=== PATIENT | male | born 1995 | race African-American/Black ===

== ENCOUNTER 2020-02-09 13:24 | Emergency (ER) | payer SELFPAY ==
[2020-02-09] MEDS ORDERED: AZITHROMYCIN 250 MG TABLET PO ONE (13:42)
[2020-02-09] MEDS ORDERED: CEFTRIAXONE INJ 250 MG VIAL IM ONE (13:42)
[2020-02-09] MEDS ORDERED: LIDOCAINE 1% INJ-PF (10 MG/ML) 30 ML SDV INJ ONE (13:42)
--- NOTE | 2020-02-09 13:44 | ER Document Report ---
HPI - HPI Time Seen by Provider: 02/09/20 13:39 Context: Patient is a 24-year-old male presents emergency department with a chief complaint of penile discharge. Patient reports yesterday after having unprotected sexual intercourse he noticed a cloudy yellow discharge coming from penis. He reports that he continues to have the same symptoms today as well as burning with urination. Patient reports he has had 3 sexual partners within the past month and has used protection sometimes. Patient would like to be checked for STI. Patient denies testicular pain or swelling. Patient denies lesions or penile swelling. Past Medical History - General Information source: Patient - Social History Smoking Status: Unknown if Ever Smoked Lives with: Family Family History: None - Past Medical History Cardiac Medical History: Reports: None Pulmonary Medical History: Reports: None EENT Medical History: Reports: None Neurological Medical History: Reports: None Endocrine Medical History: Reports: None Renal/ Medical History: Reports: None Malignancy Medical History: Reports None GI Medical History: Reports: None Musculoskeletal Medical History: Reports None Skin Medical History: Reports None Psychiatric Medical History: Reports: None Traumatic Medical History: Reports: None Infectious Medical History: Reports: None Surgical Hx: Negative Vertical Provider Document - CONSTITUTIONAL Agree With Documented VS: Yes Exam Limitations: No Limitations General Appearance: No Apparent Distress - HEENT HEENT: Atraumatic, Normal ENT Exam, Normocephalic, PERRLA - RESPIRATORY Respiratory: Breath Sounds Normal, No Respiratory Distress - CARDIOVASCULAR Cardiovascular: Regular Rate, Regular Rhythm - GI/ABDOMEN Gastrointestinal: Abdomen Soft, Abdomen Non-Tender, Normal Bowel Sounds - MUSCULOSKELETAL/EXTREMETIES Musculoskeletal/Extremeties: FROM - NEURO Level of Consciousness: Awake, Alert, Appropriate - DERM Integumentary: Warm, Dry, No Rash Course - Re-evaluation Re-evalutation: 02/09/20 Urine did show trace bacteria with 9 WBCs. Patient was prophylactically treated for gonorrhea and chlamydia. 20:00 I did call and speak with the patient in regards to his negative gonorrhea and Chlamydia results. Due to the patient's risky sexual behavior I have informed him to avoid sexual intercourse for the next 14 days. Urine culture was sent. Patient will be called if this requires antibiotics. Patient encouraged to get rechecked if continues to have symptoms. Patient also advised to return if symptoms worsen or change such as testicular pain or swelling. - Laboratory Laboratory results interpreted by me: 02/09/20 20:10 Laboratory 02/09/20 02/09/20 14:15 14:15 Urine Color YELLOW Urine Appearance CLEAR Urine pH 6.0 Ur Specific [place] 1.017 Urine Protein NEGATIVE Urine Glucose (UA) NEGATIVE Urine Ketones NEGATIVE Urine Blood NEGATIVE Urine Nitrite NEGATIVE Urine Bilirubin NEGATIVE Urine Urobilinogen NEGATIVE Ur Leukocyte Esterase TRACE H Urine WBC (Auto) 9 Urine RBC (Auto) 1 Urine Mucus (Auto) RARE Urine Ascorbic Acid NEGATIVE Chlamydia DNA (PCR) NOT DETECTED N.gonorrhoeae DNA (PCR) NOT DETECTED Discharge - Discharge Clinical Impression: Penile discharge Condition: Stable Disposition: HOME, SELF-CARE Additional Instructions: *Today using the emergency department for penile discharge. You were prophylactically treated for gonorrhea and chlamydia. Your cultures are pending. Please put refrain from sexual intercourse until all symptoms have improved and you have received results of your testing. If your tests are positive you do need to wait 14 days. It would be buckley to get rechecked to make sure that the infection has been treated appropriately and is now gone. Please return if your symptoms change or worsen such as severe testicular pain or swelling, difficulty urinating or any new symptoms. Please inform your partners if you are positive. Forms: Return to Work
[2020-02-09 14:33] LABS: APPEARANCE,URINE CLEAR; BILIRUBIN,URINE NEGATIVE (NEGATIVE); COLOR,URINE YELLOW; GLUCOSE, URINE NEGATIVE (NEGATIVE); KETONES,URINE NEGATIVE (NEGATIVE); LEUKOCYTE ESTERASE,URINE TRACE (NEGATIVE); NITRITE,URINE NEGATIVE (NEGATIVE); PROTEIN,URINE NEGATIVE (NEGATIVE); URINE SPECIFIC GRAVITY 1.017; UROBILINOGEN,URINE NEGATIVE mg/dL (<2.0)
[2020-02-09 15:43] VITALS: BP 118/71
[2020-02-09 16:01] LABS: CHLAM PCR NOT DETECTED (NOT DETECT)
== END 2020-02-09 15:43 | disposition home or self-care (01) ==
LOC: ER 13:24
DX: R36.9 Urethral discharge, unspecified (principal); R30.9 Painful micturition, unspecified; Z20.2 Contact with and (suspected) exposure to infections with a predominantly sexual mode of transmission
CPT/HCPCS: 99284; 96372; 87086; 81001; 87491; 87591; J3490; J0696